=== PATIENT | female | born 1980 | race Caucasian/White ===

== ENCOUNTER 2018-02-07 04:43 | Emergency (ER) | payer BC ==
[2018-02-07] MEDS ORDERED: ALBUTEROL 2.5 MG/3 ML NEB SOL ONE (05:26)
[2018-02-07] MEDS ORDERED: IPRATROPIUM BROM 0.5MG/2.5ML ONE (05:27)
--- NOTE | 2018-02-07 06:11 | ER ---
Nurse's Notes [facility] Name: Jayro Calderon Age: 37 yrs Sex: Female : 1980 Arrival Date: 02/07/2018 Time: 04:43 Bed 16 Private MD: Diagnosis: Bronchitis, not specified as acute or chronic Presentation: 02/07 04:54 Presenting complaint: Patient states: "I have a cough, and I lost my voice, and I have jd3 this heaviness on my chest that is making it hard to breath because of all this congestion.". Transition of care: patient was not received from another setting of care. Onset of symptoms was February 07, 2018. Risk Assessment: Do you want to hurt yourself or someone else? Patient reports no desire to harm self or others. Initial Sepsis Screen: Does the patient meet any 2 criteria? No. Patient's initial sepsis screen is negative. Does the patient have a suspected source of infection? No. Patient's initial sepsis screen is negative. Care prior to arrival: None. 04:54 Method Of Arrival: Ambulatory 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 - Social history:: Smoking status: Patient uses tobacco products, denies chronic smoking, but will smoke occasionally. - Ebola Screening: : Patient negative for fever greater than or equal to 101.5 degrees Fahrenheit, and additional compatible Ebola Virus Disease symptoms. Screenin:02 Abuse screen: Denies threats or abuse. Nutritional screening: No deficits noted. jd3 Tuberculosis screening: No symptoms or risk factors identified. Fall Risk Ambulatory Aid- None/Bed Rest/Nurse Assist (0 pts). Gait- Normal/Bed Rest/Wheelchair (0 pts) Mental Status- Oriented to own ability (0 pts). Total Coleman Fall Scale indicates No Risk (0-24 pts). Assessment: 05:01 General: Appears uncomfortable, Behavior is calm, cooperative, appropriate for age. jd3 Pain: Denies pain. Neuro: Level of Consciousness is awake, alert, obeys commands, Oriented to person, place, time, situation. Cardiovascular: Capillary refill < 3 seconds Patient's skin is warm and dry. Respiratory: Reports shortness of breath cough that is Airway is patent Respiratory effort is even, labored, Respiratory pattern is regular, symmetrical, Breath sounds with wheezes bilaterally. GI: No signs and/or symptoms were reported involving the gastrointestinal system. : No signs and/or symptoms were reported regarding the genitourinary system. EENT: No signs and/or symptoms were reported regarding the EENT system. Derm: Skin is intact, Skin is dry, Skin is normal, Skin temperature is warm. Musculoskeletal: Circulation, motion, and sensation intact. Range of motion: intact in all extremities. 06:18 Reassessment: Patient appears in no apparent distress at this time. Patient and/or jd3 family updated on plan of care and expected duration. Pain level reassessed. Patient is alert, oriented x 3, equal unlabored respirations, skin warm/dry/pink. reported understanding of discharge instructions, even and steady gait upon discharge. Patient states feeling better. Vital Signs: 05:00 BP 114 / 96; Pulse 88; Resp 18 S; Temp 99.0(O); Pulse Ox 100% on R/A; Weight 90.72 kg jd3 (R); Height 5 ft. 6 in. (167.64 cm) (R); Pain 0/10; 06:18 BP 120 / 67; Pulse 95; Resp 16 S; Pulse Ox 100% on R/A; jd3 05:00 Body Mass Index 32.28 (90.72 kg, 167.64 cm) jd3 ED Course: 04:43 Patient arrived in ED. ds1 04:54 Rajiv Cueva, MUKESH is Primary Nurse. jd3 04:56 Triage completed. jd3 05:01 Arm band placed on. jd3 05:03 Patient has correct armband on for positive identification. Bed in low position. Call j light in reach. Side rails up X 1. 05:11 Louis Wallis MD is Attending Physician. tw4 06:17 No provider procedures requiring assistance completed. Patient did not have IV access jd3 during this emergency room visit. Administered Medications: 05:24 Drug: Albuterol - atroVENT (3:1) (2.5 mg - 0.5 mg) 3 ml Route: Nebulizer; jd3 06:19 Follow up: Response: No adverse reaction jd3 Outcome: 06:11 Discharge ordered by . tw4 06:18 Discharged to home ambulatory. jd3 06:18 Condition: stable 06:18 Discharge instructions given to patient, Instructed on discharge instructions, follow up and referral plans. medication usage, Demonstrated understanding of instructions, follow-up care, medications, Prescriptions given X 3. 06:19 Patient left the ED. jd3 Signatures: Aide Gaming ds1 Rajiv Cueva RN RN jd3 Louis Wallis MD MD tw4 Corrections: (The following items were deleted from the chart) 06:19 06:18 Reassessment: Patient appears in no apparent distress at this time. Patient jd3 and/or family updated on plan of care and expected duration. Pain level reassessed. Patient is alert, oriented x 3, equal unlabored respirations, skin warm/dry/pink. reported understanding of discharge instructions, even and steady gait upon discharge. jd3
--- NOTE | 2018-02-07 06:11 | EDPHYS ---
Physician Documentation [facility] Name: Jayro Calderon Age: 37 yrs Sex: Female : 1980 Arrival Date: 02/07/2018 Time: 04:43 Bed 16 Private MD: ED Physician Louis Wallis HPI: 02/07 06:08 This 37 yrs old Female presents to ER via Ambulatory with complaints of tw4 Breathing Difficulty, Chest Tightness. 06:08 The patient has shortness of breath at rest. Onset: The symptoms/episode began/occurred tw4 today. Duration: The symptoms are continuous, and are unchanged since they started. The patient's shortness of breath has no apparent modifying factors. Associated signs and symptoms: The patient has no apparent associated signs or symptoms. Severity of symptoms: At their worst the symptoms were moderate. The patient has not experienced similar symptoms in the past. 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 - Social history:: Smoking status: Patient uses tobacco products, denies chronic smoking, but will smoke occasionally. - Ebola Screening: : Patient negative for fever greater than or equal to 101.5 degrees Fahrenheit, and additional compatible Ebola Virus Disease symptoms. ROS: 06:08 Constitutional: Negative for fever, chills, and weight loss, Cardiovascular: Negative tw4 for chest pain, palpitations, and edema, Abdomen/GI: Negative for abdominal pain, nausea, vomiting, diarrhea, and constipation, Back: Negative for injury and pain, MS/Extremity: Negative for injury and deformity. 06:08 Respiratory: Positive for cough, with clear sputum. Exam: 06:08 Constitutional: This is a well developed, well nourished patient who is awake, alert, tw4 and in no acute distress. Head/Face: Normocephalic, atraumatic. Chest/axilla: Normal chest wall appearance and motion. Nontender with no deformity. No lesions are appreciated. Cardiovascular: Regular rate and rhythm with a normal S1 and S2. No gallops, murmurs, or rubs. Normal PMI, no JVD. No pulse deficits. Abdomen/GI: Soft, non-tender, with normal bowel sounds. No distension or tympany. No guarding or rebound. No evidence of tenderness throughout. MS/ Extremity: Pulses equal, no cyanosis. Neurovascular intact. Full, normal range of motion. Neuro: Awake and alert, GCS 15, oriented to person, place, time, and situation. Cranial nerves II-XII grossly intact. Motor strength 5/5 in all extremities. Sensory grossly intact. Cerebellar exam normal. Normal gait. 06:08 Respiratory: the patient does not display signs of respiratory distress, Respirations: normal, Breath sounds: wheezing: that is mild. Vital Signs: 05:00 BP 114 / 96; Pulse 88; Resp 18 S; Temp 99.0(O); Pulse Ox 100% on R/A; Weight 90.72 kg jd3 (R); Height 5 ft. 6 in. (167.64 cm) (R); Pain 0/10; 06:18 BP 120 / 67; Pulse 95; Resp 16 S; Pulse Ox 100% on R/A; jd3 05:00 Body Mass Index 32.28 (90.72 kg, 167.64 cm) jd3 MDM: 05:12 Patient medically screened. tw4 06:08 Differential diagnosis: reactive airway disease. Antibiotic administration: Not tw4 indicated. Data reviewed: vital signs, nurses notes. Counseling: I had a detailed discussion with the patient and/or guardian regarding: the historical points, exam findings, and any diagnostic results supporting the discharge/admit diagnosis. Special discussion: I discussed with the patient/guardian in detail that at this point there is no indication for admission to the hospital. It is understood, however, that if the symptoms persist or worsen the patient needs to return immediately for re-evaluation. Administered Medications: 05:24 Drug: Albuterol - atroVENT (3:1) (2.5 mg - 0.5 mg) 3 ml Route: Nebulizer; jd3 06:19 Follow up: Response: No adverse reaction jd3 Disposition: 02/07/18 06:11 Discharged to Home. Impression: Bronchitis, not specified as acute or chronic. - Condition is Stable. - Discharge Instructions: Acute Bronchitis, Adult. - Prescriptions for Tessalon Perles 100 mg Oral Capsule - take 1 capsule by ORAL route every 8 hours As needed; 15 capsule. Albuterol Sulfate 90 mcg/actuation - inhale 1-2 puff by INHALATION route every 4-6 hours; 1 Inhaler. Guaifenesin AC 10- 100 mg/5 mL Oral Liquid - take 10 milliliter by ORAL route every 4 hours As needed; 240 milliliter. - Work release form, Medication Reconciliation Form, Thank You Letter, Antibiotic Education, Prescription Opioid Use form. - Follow up: Private Physician; When: Upon discharge from the Emergency Department; Reason: Further diagnostic work-up, Recheck today's complaints, Continuance of care. - Problem is new. - Symptoms have improved. Signatures: Rajiv Cueva RN RN jd3 Louis Wallis MD MD tw4 Corrections: (The following items were deleted from the chart) 06:12 06:11 02/07/2018 06:11 Discharged to Home. Impression: Bronchitis, not specified as tw4 acute or chronic. Condition is Stable. Forms are Medication Reconciliation Form, Thank You Letter, Antibiotic Education, Prescription Opioid Use. Follow up: Private Physician; When: Upon discharge from the Emergency Department; Reason: Further diagnostic work-up, Recheck today's complaints, Continuance of care. tw4 06:19 06:12 02/07/2018 06:11 Discharged to Home. Impression: Bronchitis, not specified as jd3 acute or chronic. Condition is Stable. Forms are Medication Reconciliation Form, Thank You Letter, Antibiotic Education, Prescription Opioid Use. Follow up: Private Physician; When: Upon discharge from the Emergency Department; Reason: Further diagnostic work-up, Recheck today's complaints, Continuance of care. Problem is new. Symptoms have improved. tw4
== END 2018-02-07 06:19 | disposition home or self-care (01) ==
LOC: ER 04:43
DX: J40 Bronchitis, not specified as acute or chronic (principal); F31.9 Bipolar disorder, unspecified; Z72.0 Tobacco use
CPT/HCPCS: 94640; 99284

== ENCOUNTER 2019-07-22 01:49 | Emergency (ER) | payer OTHER ==
--- NOTE | 2019-07-22 02:42 | ER ---
Nurse's Notes [facility] Name: Jayro Calderon Age: 38 yrs Sex: Female : 1980 Arrival Date: 07/22/2019 Time: 01:50 Bed 7 Private MD: Diagnosis: Acute upper respiratory infection, unspecified Presentation: 07/21 02:03 Chief complaint: Patient states: she has had a dry cough x a year but now she is bb feeling some chest tightness, sore throat, denies fever but says she thought she would come and get checked since she feels bad enough not to go to work. Coronavirus screen: Proceed with normal triage. Ebola Screen: No symptoms or risks identified at this time. Initial Sepsis Screen: Does the patient meet any 2 criteria? No. Patient's initial sepsis screen is negative. Does the patient have a suspected source of infection? No. Patient's initial sepsis screen is negative. Risk Assessment: Do you want to hurt yourself or someone else? Patient reports no desire to harm self or others. Onset of symptoms was July 22, 2019. 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 - Social history:: Smoking status: Patient/guardian denies using tobacco, the patient reports quitting approximately 1 years ago, Patient/guardian denies using alcohol. Screenin:11 Abuse screen: Denies threats or abuse. Nutritional screening: No deficits noted. jd3 Tuberculosis screening: No symptoms or risk factors identified. Fall Risk Ambulatory Aid- None/Bed Rest/Nurse Assist (0 pts). Gait- Normal/Bed Rest/Wheelchair (0 pts) Mental Status- Oriented to own ability (0 pts). Total Coleman Fall Scale indicates No Risk (0-24 pts). Assessment: 02:09 General: Appears in no apparent distress. uncomfortable, Behavior is calm, cooperative, jd3 appropriate for age. Pain: Complains of pain in "joints" Pain does not radiate. Quality of pain is described as aching, Pain began gradually, Is continuous. Neuro: Level of Consciousness is awake, alert, obeys commands, Oriented to person, place, time, situation. Cardiovascular: Denies chest pain, Heart tones S1 S2 present Capillary refill < 3 seconds Patient's skin is warm and dry. Respiratory: Reports shortness of breath at rest cough that is non-productive, persistent , chronic Airway is patent Respiratory effort is even, unlabored, Respiratory pattern is regular, symmetrical, Breath sounds are clear bilaterally. GI: No signs and/or symptoms were reported involving the gastrointestinal system. Patient currently denies diarrhea, nausea, vomiting. : No signs and/or symptoms were reported regarding the genitourinary system. EENT: No signs and/or symptoms were reported regarding the EENT system. Derm: Skin is intact, Skin is dry, Skin is normal, Skin temperature is warm. Musculoskeletal: Circulation, motion, and sensation intact. Range of motion: intact in all extremities. 02:48 Reassessment: Patient appears in no apparent distress at this time. Patient and/or jd3 family updated on plan of care and expected duration. Pain level reassessed. Patient is alert, oriented x 3, equal unlabored respirations, skin warm/dry/pink. pt reported understanding of discharge instructions, even and steady gait upon discharge. Vital Signs: 02:03 BP 153 / 100; Pulse 105; Resp 16 S; Temp 98.3(O); Pulse Ox 100% on R/A; Weight 115.67 bb kg (R); Height 5 ft. 7 in. (170.18 cm) (R); Pain 7/10; 02:48 BP 125 / 90; Pulse 100; Resp 16 S; Temp 98.2(O); Pulse Ox 100% on R/A; jd3 02:03 Body Mass Index 39.94 (115.67 kg, 170.18 cm) ED Course: 01:50 Patient arrived in ED. ds1 01:55 Louis Wallis MD is Attending Physician. tw4 01:56 Rajiv Cueva, RN is Primary Nurse. jd3 02:07 Triage completed. bb 02:12 Patient has correct armband on for positive identification. Bed in low position. Call jjustino light in reach. Side rails up X 1. Pulse ox on. NIBP on. 02:12 Arm band placed on. jd3 02:12 Patient maintains SpO2 saturation greater than 95% on room air. jd3 02:37 CXR XRAY In Process Unspecified. EDMS 02:46 No provider procedures requiring assistance completed. Patient did not have IV access jd3 during this emergency room visit. Administered Medications: No medications were administered Outcome: 02:42 Discharge ordered by . tw4 02:47 Discharged to home ambulatory. jd3 02:47 Condition: stable 02:47 Discharge instructions given to patient, Instructed on discharge instructions, follow up and referral plans. Demonstrated understanding of instructions, follow-up care. 02:53 Patient left the ED. jd3 Signatures: Dispatcher [employer] EDAZ Aide Gaming ds1 Patricia Yepez RN RN Rajiv Thomas, MUKESH RN jLuois Singletary MD MD tw4 Corrections: (The following items were deleted from the chart) 02:49 02:48 BP 125 / 90; Pulse 100bpm; Resp 16bpm; Spontaneous; Pulse Ox 100% RA; jd3 jd3
--- NOTE | 2019-07-22 02:42 | EDPHYS ---
Physician Documentation [facility] Name: Jayro Calderon Age: 38 yrs Sex: Female : 1980 Arrival Date: 07/22/2019 Time: 01:50 Bed 7 Private MD: ED Physician Louis Wallis HPI: 07/21 02:53 This 38 yrs old Female presents to ER via Ambulatory with complaints of tw4 Cough, Chest Tightness. 02:53 The patient or guardian reports cough. Onset: The symptoms/episode began/occurred 1 tw4 year(s) ago. Severity of symptoms: At their worst the symptoms were moderate, in the emergency department the symptoms are unchanged. Modifying factors: The symptoms are alleviated by nothing, the symptoms are aggravated by nothing. The patient has not experienced similar symptoms in the past. 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 - Social history:: Smoking status: Patient/guardian denies using tobacco, the patient reports quitting approximately 1 years ago, Patient/guardian denies using alcohol. ROS: 02:53 Constitutional: Negative for fever, chills, and weight loss, Eyes: Negative for injury, tw4 pain, redness, and discharge, Cardiovascular: Negative for chest pain, palpitations, and edema, Abdomen/GI: Negative for abdominal pain, nausea, vomiting, diarrhea, and constipation, Back: Negative for injury and pain, MS/Extremity: Negative for injury and deformity, Skin: Negative for injury, rash, and discoloration, Neuro: Negative for headache, weakness, numbness, tingling, and seizure. 02:53 Respiratory: Positive for cough, Negative for dyspnea on exertion, hemoptysis, orthopnea, pleurisy, shortness of breath, sputum production, wheezing. Exam: 02:53 Constitutional: This is a well developed, well nourished patient who is awake, alert, tw4 and in no acute distress. Head/Face: Normocephalic, atraumatic. Chest/axilla: Normal chest wall appearance and motion. Nontender with no deformity. No lesions are appreciated. Cardiovascular: Regular rate and rhythm with a normal S1 and S2. No gallops, murmurs, or rubs. Normal PMI, no JVD. No pulse deficits. Respiratory: Lungs have equal breath sounds bilaterally, clear to auscultation and percussion. No rales, rhonchi or wheezes noted. No increased work of breathing, no retractions or nasal flaring. Abdomen/GI: Soft, non-tender, with normal bowel sounds. No distension or tympany. No guarding or rebound. No evidence of tenderness throughout. Back: No spinal tenderness. No costovertebral tenderness. Full range of motion. Skin: Warm, dry with normal turgor. Normal color with no rashes, no lesions, and no evidence of cellulitis. MS/ Extremity: Pulses equal, no cyanosis. Neurovascular intact. Full, normal range of motion. Neuro: Awake and alert, GCS 15, oriented to person, place, time, and situation. Cranial nerves II-XII grossly intact. Motor strength 5/5 in all extremities. Sensory grossly intact. Cerebellar exam normal. Normal gait. Vital Signs: 02:03 BP 153 / 100; Pulse 105; Resp 16 S; Temp 98.3(O); Pulse Ox 100% on R/A; Weight 115.67 bb kg (R); Height 5 ft. 7 in. (170.18 cm) (R); Pain 7/10; 02:48 BP 125 / 90; Pulse 100; Resp 16 S; Temp 98.2(O); Pulse Ox 100% on R/A; jd3 02:03 Body Mass Index 39.94 (115.67 kg, 170.18 cm) bb MDM: 01:55 Patient medically screened. tw4 02:53 Differential Diagnosis: Obstructed Airway Bronchitis Influenza Upper Respiratory tw4 Infection. Data reviewed: vital signs, nurses notes. Data reviewed: lab test result(s), CBC, electrolytes, hepatic panel. Data interpreted: Pulse oximetry: Interpretation: normal. Special discussion: I discussed with the patient/guardian in detail that at this point there is no indication for admission to the hospital. It is understood, however, that if the symptoms persist or worsen the patient needs to return immediately for re-evaluation. 04 01:56 Order name: Flu; Complete Time: 02:39 tw4 07/21 01:56 Order name: CXR XRAY tw4 Administered Medications: No medications were administered Disposition: 07/22/19 02:42 Discharged to Home. Impression: Acute upper respiratory infection, unspecified. - Condition is Stable. - Discharge Instructions: Upper Respiratory Infection, Pediatric, Viral Respiratory Infection. - Prescriptions for Tessalon Perles 100 mg Oral Capsule - take 1 capsule by ORAL route every 8 hours As needed; 15 capsule. - Work release form, Medication Reconciliation Form, Thank You Letter, Antibiotic Education, Prescription Opioid Use form. - Follow up: Private Physician; When: Upon discharge from the Emergency Department; Reason: Recheck today's complaints, Continuance of care, Re-evaluation by your physician. - Problem is new. - Symptoms have improved. Signatures: Dispatcher [employer] EDMS Patricia Yepez RN RN Rajiv Thomas RN RN Louis Julien MD MD tw4 Corrections: (The following items were deleted from the chart) 02:53 02:42 07/22/2019 02:42 Discharged to Home. Impression: Acute upper respiratory jd3 infection, unspecified. Condition is Stable. Forms are Medication Reconciliation Form, Thank You Letter, Antibiotic Education, Prescription Opioid Use. Follow up: Private Physician; When: Upon discharge from the Emergency Department; Reason: Recheck today's complaints, Continuance of care, Re-evaluation by your physician. Problem is new. Symptoms have improved. tw4
[2019-07-22 03:00] VITALS: O2SAT 100
[2019-07-22 03:01] VITALS: BP 125/90; TEMP 98.2
--- NOTE | 2019-07-22 08:28 | RAD REPORT ---
EXAM DESCRIPTION: RAD - Chest Single View - 07/22/2019 2:37 am CLINICAL HISTORY: COUGH Chest pain. COMPARISON: ABDOMEN ACUTE SERIES dated 08/26/2007 FINDINGS: Portable technique limits examination quality. The lungs are grossly clear. The heart is normal in size. No displaced fractures. IMPRESSION: No acute intrathoracic process suspected.
== END 2019-07-22 02:53 | disposition home or self-care (01) ==
LOC: ER 01:49
DX: J06.9 Acute upper respiratory infection, unspecified (principal); F31.9 Bipolar disorder, unspecified; Z98.82 Breast implant status
CPT/HCPCS: 71045; 87804; 99284

== ENCOUNTER → 2023-06-11 | Emergency (ER) | payer BC ==
[~2023-06-11] MED LIST: HALOPERIDOL LACT 5 MG/ML INJ ONE; MORPHINE 4 MG/ML SYR ONE; NA CHLORIDE 0.9% 1,000 ML ONE; OXYCODONE *CR* 10 MG TAB PO ONE
--- NOTE | 2023-06-11 22:09 | RAD REPORT ---
EXAM DESCRIPTION: Donna Single View06/11/2023 9:49 pm CLINICAL HISTORY: sob COMPARISON: 2019 FINDINGS: The lungs appear clear of acute infiltrate. The heart is normal size IMPRESSION: No acute abnormalities displayed
[2023-06-11 22:40] LABS: Absolute Lymphocytes (CBC) 2.3 K/uL (0.7-4.9); Lymphocytes % 16.9 % (15.3-44.8); MCV 86.1 fL (80-100); MPV 6.9 fL (7.6-11.3); Platelets 605 thou/uL (152-406); RBC Red Blood Cell Count 3.25 M/uL (3.86-4.86)
[2023-06-11 23:13] LABS: Albumin 2.9 g/dL (3.4-5.0); Bilirubin Total 0.4 mg/dL (0.2-1.0); Protein, Total 7.7 g/dL (6.4-8.2); Troponin High Sensitivity 4.2 pg/mL (<58.9)
[2023-06-11 23:14] LABS: Potassium 3.6 mEq/L (3.5-5.1)
[2023-06-12 00:59] LABS: Specific Gravity > 1.030 (1.005-1.030)
[2023-06-12 01:09] LABS: Specific Gravity > 1.030 (1.005-1.030); Urine Bacteria None Seen /HPF (<20); Urine Bilirubin NEGATIVE (Negative); Urine Blood 1+ (Negative); Urine Clarity Clear (Clear); Urine Color Yellow (Yellow); Urine Glucose TRACE (Negative); Urine Mucus 1+ /HPF (None Seen); Urine Protein 1+ (Negative); Urine RBC <5 /HPF (None Seen); Urine Urobilinogen Normal (Normal); Urine pH 5.5 (5.0-7.0)
--- NOTE | 2023-06-12 02:32 | ER ---
Nurse's Notes [facility] Name: Jayro Calderon Age: 42 yrs Sex: Female : 1980 Arrival Date: 06/11/2023 Time: 20:45 Bed 20 Private MD: Diagnosis: Fat Infarct Presentation: 06/11 21:00 Chief complaint: Patient states: "I've been having severe back pain that started on jw7 Monday and has progressively gotten worse. I've also been having some shortness of breath from the pain.". Coronavirus screen: At this time, the client does not indicate any symptoms associated with coronavirus-19. Ebola Screen: No symptoms or risks identified at this time. Initial Sepsis Screen: Does the patient meet any 2 criteria? RR > 20 per min. HR > 90 bpm. Yes Does the patient have a suspected source of infection? No. Patient's initial sepsis screen is negative. Risk Assessment: Do you want to hurt yourself or someone else? Patient reports no desire to harm self or others. Onset of symptoms was June 09, 2023. Care prior to arrival: Medication(s) given: Tylenol, 650 mg. 21:00 Method Of Arrival: Ambulatory jw7 21:00 Acuity: DEEPALI 3 jw7 Triage Assessment: 21:00 General: Appears in no apparent distress. uncomfortable, Behavior is cooperative, jw7 anxious, crying, restless. Pain: Complains of pain in back Pain does not radiate. Pain currently is 10 out of 10 on a pain scale. Quality of pain is described as sharp, stabbing, throbbing, Pain began 2-3 days ago. Is continuous. EENT: No deficits noted. No signs and/or symptoms were reported regarding the EENT system. Neuro: Najera Agitation-Sedation Scale (RASS): 0 - Alert and Calm Level of Consciousness is awake, alert, obeys commands, Oriented to person, place, time, situation. Cardiovascular: Heart tones S1 S2 present Capillary refill < 3 seconds Patient's skin is warm and dry. Respiratory: Reports shortness of breath due to pain Airway is patent Trachea midline Respiratory effort is even, unlabored, Respiratory pattern is regular, symmetrical, tachypnea Onset: The symptoms/episode began/occurred Monday, the patient has severe shortness of breath. GI: Abdomen is round non-distended, obese, Colostomy site is clean and dry. Ostomy appliance is intact. Bowel sounds present X 4 quads. Abd is soft and non tender X 4 quads. : No deficits noted. No signs and/or symptoms were reported regarding the genitourinary system. Derm: Skin is intact, is healthy with good turgor, Skin is dry, Skin is normal, Skin temperature is warm. Musculoskeletal: Circulation, motion, and sensation intact. Range of motion: intact in all extremities. Historical: - Allergies: 21:00 No Known Allergies; jw7 - Home Meds: 21:00 Adderall XR Oral [Active]; Xanax oral [Active]; lamotrigine oral [Active]; jw7 - PMHx: 21:00 Anxiety; Bipolar disorder; ulcertive colitus; PAU (ulcertive colitus); Acute Kidney jw7 Failure (ulcertive colitus); - PSHx: 21:00 Colectomy; Colostomy; jw7 - Immunization history:: Adult Immunizations up to date, Client reports having NOT received the Covid vaccine. Last tetanus immunization: < 5 years ago Flu vaccine is not up to date. - Social history:: Smoking status: Patient denies any tobacco usage or history of. Patient/guardian denies using alcohol, street drugs, IV drugs. Screenin:00 [facility] ED Fall Risk Assessment (Adult) History of falling in the last 3 months, jw7 including since admission No falls in past 3 months (0 pts) Score/Fall Risk Level 0 - 2 = Low Risk Oriented to surroundings, Maintained a safe environment, Educated pt \\T\\ family on fall prevention, incl call for assistance when getting out of bed. Abuse screen: Denies threats or abuse. Denies injuries from another. Nutritional screening: No deficits noted. Tuberculosis screening: No symptoms or risk factors identified. Assessment: 21:00 General: See Triage Assessment. jw7 22:00 Reassessment: Patient appears in no apparent distress at this time. No changes from jw7 previously documented assessment. Patient and/or family updated on plan of care and expected duration. Pain level reassessed. Patient is alert, oriented x 3, equal unlabored respirations, skin warm/dry/pink. 23:00 Reassessment: Patient appears in no apparent distress at this time. Patient and/or jw7 family updated on plan of care and expected duration. Pain level reassessed. Patient is alert, oriented x 3, equal unlabored respirations, skin warm/dry/pink. Patient states feeling better. Patient states symptoms have improved. 06/12 00:00 Reassessment: Patient appears in no apparent distress at this time. Patient and/or jw7 family updated on plan of care and expected duration. Pain level reassessed. Patient is alert, oriented x 3, equal unlabored respirations, skin warm/dry/pink. Pt c/o of returning pain to back, Provider Notified. 01:30 Reassessment: Patient appears in no apparent distress at this time. Patient and/or jw7 family updated on plan of care and expected duration. Pain level reassessed. Patient is alert, oriented x 3, equal unlabored respirations, skin warm/dry/pink. Patient states feeling better. Patient states symptoms have improved. 02:30 Reassessment: Patient appears in no apparent distress at this time. No changes from [facility] previously documented assessment. Patient and/or family updated on plan of care and expected duration. Pain level reassessed. Patient is alert, oriented x 3, equal unlabored respirations, skin warm/dry/pink. Vital Signs: 06/11 21:00 BP 149 / 114; Pulse 102; Resp 26 S; Temp 98.1(O); Pulse Ox 100% on R/A; Weight 104.33 jw7 kg; Height 5 ft. 7 in. ; Pain 10/10; 21:00 BP 133 / 103; Pulse 98; Resp 23 S; Pulse Ox 98% on R/A; jw7 22:00 BP 149 / 100; Pulse 85; Resp 20 S; Pulse Ox 99% on R/A; jw7 23:00 BP 121 / 77; Pulse 81; Resp 19 S; Pulse Ox 100% on R/A; jw7 23:30 BP 121 / 77; Pulse 82; ec2 06/12 00:00 BP 126 / 88; Pulse 84; Resp 19 S; Pulse Ox 100% on R/A; jw7 01:30 BP 139 / 69; Pulse 89; Resp 20 S; Pulse Ox 100% on R/A; jw7 02:00 BP 127 / 68; Pulse 89; Resp 20 S; Pulse Ox 98% on R/A; jw7 06/11 21:00 Body Mass Index 36.02 (104.33 kg, 170.18 cm) jw7 06/11 21:00 Pain Scale: Adult jw7 ED Course: 06/11 19:00 Patient has correct armband on for positive identification. Bed in low position. Call jw7 light in reach. Family accompanied patient. 20:49 Patient arrived in ED. kj1 21:00 Arm band placed on. jw7 21:12 Kasi Ward MD is Attending Physician. ec2 21:13 Natalie Whiting RN is Primary Nurse. jw7 21:17 Triage completed. jw7 21:51 CXR XRAY In Process Unspecified. EDMS 22:10 Inserted saline lock: 20 gauge in right forearm, using aseptic technique. Blood jw7 collected. 22:10 Initial lab(s) drawn, by tx, sent to lab. First set of blood cultures drawn by tx. jw7 22:25 Second set of blood cultures drawn by tx. jw7 06/12 00:26 Test, Urine Sent. jw7 00:26 Urinalysis w/ reflexes Sent. jw7 00:26 Urine collected: straight cath specimen, kim colored. Straight cath inserted, using jw7 sterile technique, 16 Fr. Returned kim urine. Patient tolerated well. 01:17 CT Abd/Pelvis - IV Contrast Only In Process Unspecified. EDMS 02:48 No provider procedures requiring assistance completed. IV discontinued, intact, jw7 bleeding controlled, No redness/swelling at site. Pressure dressing applied. 02:49 Provided Education on: Discharge instructions. jw7 02:50 Kasi Ward MD is Attending Physician. jw7 Administered Medications: 06/11 22:23 Drug: morphine IVP or IV 4 mg IVP once over 4 mins Route: IVP; Infused Over: 4 mins; jw7 Site: right forearm; 23:40 Follow up: Response: No adverse reaction; Marked relief of symptoms jw7 22:23 Drug: Haloperidol IVP 2.5 mg IVP once Route: IVP; Site: right forearm; jw7 23:39 Follow up: Response: No adverse reaction; Marked relief of symptoms jw7 22:23 Drug: NS 0.9% IV 1000 ml IV at 1 bolus Per protocol; 1000 mL bolus Route: IV; Rate: 1 jw7 bolus; Site: right forearm; 06/12 02:32 Follow up: Response: No adverse reaction; IV Status: Completed infusion; IV Intake: jw7 1000ml 00:26 Drug: morphine IVP or IV 4 mg IVP once over 4 mins Route: IVP; Infused Over: 4 mins; jw7 Site: right forearm; 02:32 Follow up: Response: No adverse reaction; Marked relief of symptoms jw7 02:47 Drug: oxyCODONE PO 10 mg PO once Route: PO; jw7 02:47 Follow up: Response: No adverse reaction jw7 Medication: 02:49 VIS not applicable for this client. jw7 Intake: 02:32 IV: 1000ml; Total: 1000ml. jw7 Outcome: 02:31 Discharge ordered by . ec2 02:48 Discharged to home ambulatory, with family, jw7 02:48 Condition: stable 02:48 Discharge instructions given to patient, Instructed on discharge instructions, follow up and referral plans. medication usage, Demonstrated understanding of instructions, follow-up care, medications, Prescriptions given X 1, 02:50 Patient left the ED. jw7 Signatures: Dispatcher [employer] EDAixa Smith kj1 Natalie Whiting RN RN jw7 Kasi Ward MD MD ec2 Corrections: (The following items were deleted from the chart) 00:27 00:00 Reassessment: Patient appears in no apparent distress at this time. No changes jw7 from previously documented assessment. Patient and/or family updated on plan of care and expected duration. Pain level reassessed. Patient is alert, oriented x 3, equal unlabored respirations, skin warm/dry/pink. jw7
--- NOTE | 2023-06-12 02:32 | EDPHYS ---
Physician Documentation [facility] Name: Jayro Calderon Age: 42 yrs Sex: Female : 1980 Arrival Date: 06/11/2023 Time: 20:45 Bed 20 Private MD: ED Physician Kasi Ward HPI: 06/11 21:29 This 42 yrs old Female presents to ER via Ambulatory with complaints of ec2 Shortness Of Breath, KIDNEY PAIN /PAU. 21:29 Patient arrives today for evaluation of abdominal pain as well as right flank pain. ec2 Patient reports pain started on Monday. Patient reports some associated nausea and vomiting. Patient with history of IBD, ulcerative colitis, previous colonic resection. Patient reports recent admission to [facility] for PAU. Denies any urinary complaints. Patient also reports shortness of breath secondary to her pain.. Historical: - Allergies: 21:00 No Known Allergies; jw7 - Home Meds: 21:00 Adderall XR Oral [Active]; Xanax oral [Active]; lamotrigine oral [Active]; jw7 - PMHx: 21:00 Anxiety; Bipolar disorder; ulcertive colitus; PAU (ulcertive colitus); Acute Kidney jw7 Failure (ulcertive colitus); - PSHx: 21:00 Colectomy; Colostomy; jw7 - Immunization history:: Adult Immunizations up to date, Client reports having NOT received the Covid vaccine. Last tetanus immunization: < 5 years ago Flu vaccine is not up to date. - Social history:: Smoking status: Patient denies any tobacco usage or history of. Patient/guardian denies using alcohol, street drugs, IV drugs. ROS: 21:29 Constitutional: as per hpi ec2 Exam: 21:29 Constitutional: GEN: NAD Head: atraumatic Eyes: EOMI Ears: External ears are ec2 normal. CV: Tachycardia LUNGS: no respiratory distress ABD: non-distended, soft, ostomy in place, diffusely tender, not guarding, not rigid, CVA with tenderness palpation on light pressure SKIN: no evidence of rashes MSK: no evidence of trauma NEURO: moves all extremities equally. Psych: Very emotionally labile individual who is restless Vital Signs: 21:00 BP 149 / 114; Pulse 102; Resp 26 S; Temp 98.1(O); Pulse Ox 100% on R/A; Weight 104.33 jw7 kg; Height 5 ft. 7 in. ; Pain 10/10; 21:00 BP 133 / 103; Pulse 98; Resp 23 S; Pulse Ox 98% on R/A; jw7 22:00 BP 149 / 100; Pulse 85; Resp 20 S; Pulse Ox 99% on R/A; jw7 23:00 BP 121 / 77; Pulse 81; Resp 19 S; Pulse Ox 100% on R/A; jw7 23:30 BP 121 / 77; Pulse 82; ec2 06/12 00:00 BP 126 / 88; Pulse 84; Resp 19 S; Pulse Ox 100% on R/A; jw7 01:30 BP 139 / 69; Pulse 89; Resp 20 S; Pulse Ox 100% on R/A; jw7 02:00 BP 127 / 68; Pulse 89; Resp 20 S; Pulse Ox 98% on R/A; 7 06/11 21:00 Body Mass Index 36.02 (104.33 kg, 170.18 cm) [facility] 06/11 21:00 Pain Scale: Adult [facility] MDM: 06/11 21:21 Patient medically screened. ec2 21:30 Data reviewed: vital signs. ED course: Patient arrives today for evaluation of ec2 abdominal pain along with shortness of breath. Examination remarkable for anxious individual who is restless with general abdominal TTP. Will obtain lab work, CT imaging, treat the patient symptoms and reassess the patient. Patient does meet SIRS criteria, no identifiable infectious source at this point, will defer septic management at this time.. 22:39 ED course: EKG independently reviewed and interpreted by me, shows normal sinus rhythm, ec2 rate of 80, no acute ST segment elevations, nonconcerning intervals.. 22:50 ED course: CBC shows leukocytosis at 13.4. Chest x-ray shows no acute intrathoracic ec2 process. Pending rest of lab work, CT imaging. . 23:16 ED course: Metabolic profile reassuring. Lipase elevated at 400. Lactate within normal ec2 ranges, troponin within normal ranges. . 23:16 ED course: Chest x-ray shows no acute intrathoracic process.. ec2 06/12 01:11 ED course: Urine noninfectious appearing, not . . ec2 02:11 ED course: CT scan shows focal intraperitoneal fat infarction. . ec2 02:30 ED course: I discussed the findings of the CT scan with the patient and the family ec2 member and recommended inpatient hospitalization, patient declines that she wants to return to home. Will discharge home with pain medications and instructed her to return if she changes her mind or symptoms worsen. Return precautions given.. 06/11 21:29 Order name: CBC with Diff; Complete Time: 22:49 ec2 06/11 21:29 Order name: CMP; Complete Time: 23:15 ec2 06/11 21:29 Order name: Lipase; Complete Time: 23:15 ec2 06/11 21:29 Order name: Test, Urine; Complete Time: 01:11 ec2 06/11 21:29 Order name: Urinalysis w/ reflexes; Complete Time: 01:11 ec2 06/11 21:31 Order name: Blood Culture Adult (2) ec2 06/11 21:31 Order name: Lactate w/ 2H reflex if indic.; Complete Time: 23:15 ec2 06/11 22:35 Order name: Troponin High Sensitivity; Complete Time: 23:15 EDMS 06/11 21:29 Order name: CT Abd/Pelvis - IV Contrast Only ec2 06/11 21:30 Order name: CXR XRAY; Complete Time: 22:49 ec2 06/11 21:31 Order name: EKG; Complete Time: 21:32 ec2 06/11 21:29 Order name: IV Saline Lock; Complete Time: 22:23 ec2 06/11 21:29 Order name: Labs collected and sent; Complete Time: 22:23 ec2 06/11 21:31 Order name: Accucheck; Complete Time: 23:15 ec2 06/11 21:31 Order name: Cardiac monitoring; Complete Time: 23:15 ec2 06/11 21:31 Order name: EKG - Nurse/Tech; Complete Time: 23:15 ec2 06/11 21:31 Order name: IV Saline Lock - Large Bore; Complete Time: 22:23 ec2 06/11 21:31 Order name: O2 Per Protocol; Complete Time: 21:42 ec2 06/11 21:31 Order name: O2 Sat Monitoring; Complete Time: 21:42 ec2 06/11 21:31 Order name: Vital Signs; Complete Time: 21:42 ec2 06/11 23:16 Order name: Cath; Complete Time: 00:26 ec2 Administered Medications: 06/11 22:23 Drug: morphine IVP or IV 4 mg IVP once over 4 mins Route: IVP; Infused Over: 4 mins; jw7 Site: right forearm; 23:40 Follow up: Response: No adverse reaction; Marked relief of symptoms jw7 22:23 Drug: Haloperidol IVP 2.5 mg IVP once Route: IVP; Site: right forearm; jw7 23:39 Follow up: Response: No adverse reaction; Marked relief of symptoms jw7 22:23 Drug: NS 0.9% IV 1000 ml IV at 1 bolus Per protocol; 1000 mL bolus Route: IV; Rate: 1 jw7 bolus; Site: right forearm; 06/12 02:32 Follow up: Response: No adverse reaction; IV Status: Completed infusion; IV Intake: jw7 1000ml 00:26 Drug: morphine IVP or IV 4 mg IVP once over 4 mins Route: IVP; Infused Over: 4 mins; jw7 Site: right forearm; 02:32 Follow up: Response: No adverse reaction; Marked relief of symptoms jw7 02:47 Drug: oxyCODONE PO 10 mg PO once Route: PO; jw7 02:47 Follow up: Response: No adverse reaction jw7 Disposition Summary: 06/12/23 02:31 Discharge Ordered Condition: Stable ec2 Diagnosis - Fat Infarct ec2 Followup: ec2 - With: Private Physician - When: - Reason: Re-evaluation by your physician Discharge Instructions: - Discharge Summary Sheet ec2 - Abdominal Pain, Adult, [id number] ec2 Forms: - Medication Reconciliation Form ec2 - Thank You Letter ec2 - Antibiotic Education ec2 - Prescription Opioid Use ec2 - Patient Portal Instructions ec2 - Leadership Thank You Letter ec2 Prescriptions: - acetaminophen-codeine 300-15 mg Oral tablet - take 1 tablet ORAL route 3 times per day as needed for pain; 15 tablet; ec2 Refills: 0, Product Selection Permitted Signatures: Dispatcher KelHoNatalie Hercules RN RN jw7 Kasi Ward MD MD ec2 Corrections: (The following items were deleted from the chart) 06/11 21:30 21:29 Patient arrives today for evaluation of abdominal pain as well as right flank ec2 pain. Patient reports pain started on Monday. Patient reports some associated nausea and vomiting. Patient with history of IBD, ulcerative colitis, previous colonic resection. Patient reports recent admission to [facility] for PAU. Denies any urinary complaints.. ec2 21:30 21:29 Constitutional: GEN: NAD Head: atraumatic Eyes: EOMI Ears: External ears are ec2 normal. CV: Tachycardia LUNGS: no respiratory distress ABD: non-distended, soft, ostomy in place, diffusely tender, not guarding, not rigid, CVA with tenderness palpation on light pressure SKIN: no evidence of rashes MSK: no evidence of trauma NEURO: moves all extremities equally ec2 22:35 21:32 Troponin High Sensitivity+C.LAB.BRZ ordered. EDMS EDMS
[2023-06-12 03:28] VITALS: BP 127/68; TEMP 98.1; O2SAT 98
--- NOTE | 2023-06-12 11:48 | RAD REPORT ---
EXAM DESCRIPTION: CT - Abdomen Pelvis W Contrast - 06/12/2023 6:52 am CLINICAL HISTORY: The patient is 42 years old and is Female; ABD PAIN TECHNIQUE: Axial computed tomography images of the abdomen and pelvis with intravenous contrast. S agittal and coronal reformatted images were created and reviewed. This CT exam was performed using one or more of the following dose reduction techniques: automated exposure control, adjustment of t he mA and/or kV according to patient size, and/or use of iterative reconstruction technique. COMPARISON: No relevant prior studies available. FINDINGS: Limitations: Evaluation limited by motion artifact. Lung bases: Unremarkable. No mass. No consolidation. Mediastinum: Hiatal hernia. ABDOMEN: Liver: Unremarkable. No mass. Gallbladder and bile ducts: Unremarkable. No calcified stones. No ductal dilation. Pancreas: Unremarkable. No mass. No ductal dilation. Spleen: Unremarkable. No splenomegaly. Adrenals: Unremarkable. No mass. Kidneys and ureters: Unremarkable. No solid mass. No hydronephrosis. Stomach and bowel: Postsurgical changes in the bowel. Postsurgical changes in the stomach. Right lower quadrant ostomy with fat-containing parastomal hernia. No obstruction. No mucosal thickening. PELVIS: Appendix: No findings to suggest acute appendicitis. Bladder: Unremarkable. Reproductive: Unremarkable as visualized. ABDOMEN and PELVIS: Intraperitoneal space: Small focus of stranding in the intraperitoneal fat in the right lower yary drant suggestive of intraperitoneal focal fat infarction. No free air. No significant fluid collection. Bones/joints: Disc space narrowing with degenerative endplate changes in the spine. No acute fracture. No dislocation. Soft tissues: See above. Vasculature: Unremarkable. No abdominal aortic aneurysm. Lymph nodes: Prominent periaortic lymph nodes. IMPRESSION: Small focus of stranding in the intraperitoneal fat in the right lower quadrant suggesti ve of intraperitoneal focal fat infarction. Electronically signed by: Aquilino Haddad MD 06/12/2023 01:52 AM [facility] Due to temporary technical issues with the PACS/Fluency reporting system, reports are being signed by the in house radiologists without review as a courtesy to insure prompt reporting. The interpreting radiologist is fully responsible for the content of the report.
--- NOTE | 2023-06-12 14:28 | EKG ---
Test Date: 2023-06-11 Test Time: 22:35:49 Statistics Professor: ZOYA MEASUREMENT RESULTS: Intervals: Rate: 80 HI: 166 QRSD: 84 QT: 386 QTc: 445 [place]: P: 54 HI: 166 QRS: 68 T: 36 INTERPRETIVE STATEMENTS: Normal sinus rhythm Normal ECG Compared to ECG 08/12/2013 23:29:35 Sinus tachycardia no longer present Electronically Signed On 06-12-23 14:26:06 [employer] by Javid Keys
== END ==
LOC: ER 20:45
DX: K65.4 Sclerosing mesenteritis (principal)
CPT/HCPCS: 93005; 87040 ×2; 85025; 81001; 36415; 83605; 84484; 83690; 80053; 74177; 71045; Q9967; J1630; J7030

== ENCOUNTER 2024-09-08 21:49 | Emergency (ER) | payer BC ==
[2024-09-08] MEDS ORDERED: ONDANSETRON 4 MG/2 ML VIAL ONE (23:21)
[2024-09-08] MEDS ORDERED: MORPHINE 4 MG/ML SYR ONE (23:21)
[2024-09-08 23:29] LABS: Absolute Basophils 0.1 K/uL (0-0.5); Absolute Eosinophils 0.3 K/uL (0-0.5); Absolute Lymphocytes (CBC) 3.2 K/uL (0.7-4.9); Absolute Monocytes 0.9 K/uL (0.1-1.3); Absolute Neutrophil 6.5 K/uL (1.8-8.0); Basophils % 0.7 % (0-1.3); Eosinophils % 2.7 % (0-4.4); Hematocrit 33.6 % (36.0-45.0); Hemoglobin 11.5 g/dL (12.0-15.0); Lymphocytes % 29.1 % (15.3-44.8); MCH 30.6 pg (27.0-35.0); MCHC 34.3 g/dL (32.0-36.0); MCV 89.2 fL (80-100); MPV 6.9 fL (7.6-11.3); Monocytes % 8.5 % (3.3-12.3); Platelets 452 thou/uL (152-406); RBC Red Blood Cell Count 3.76 M/uL (3.86-4.86); Red Cell Distribution Width 14.6 % (12.1-15.2)
[2024-09-08 23:38] LABS: PT Prothrombin Time 12.1 SECONDS (10-13.0); Protime INR 1.06
[2024-09-08 23:46] LABS: Albumin 3.3 g/dL (3.4-5.0); Albumin/Globulin Ratio 0.8 (1.1-1.8); Anion Gap 10.1 mEq/L (5.0-15.0); Bilirubin Total 0.4 mg/dL (0.2-1.0); Globulin 4.3 g/dL (2.3-3.5); Potassium 3.1 mEq/L (3.5-5.1); Protein, Total 7.6 g/dL (6.4-8.2)
[2024-09-08] MEDS ORDERED: HYDROMORPHONE HCL 1 MG/ML INJ ONE (23:48)
--- NOTE | 2024-09-09 02:53 | ER ---
Nurse's Notes [facility] Name: Jayro Calderon Age: 43 yrs Sex: Female : 1980 Arrival Date: 09/08/2024 Time: 21:49 Bed 12 Private MD: Diagnosis: Abdominal pain, Generalized Presentation: 09/08 21:54 Chief complaint: Patient states: c/o left abdominal pain that started 2 days ago, worse me1 today. 9/10, constant. Denies fever, chills. No n/v. Hx of colectomy. Coronavirus screen: Vaccine status: Patient reports being unvaccinated. Ebola Screen: No symptoms or risks identified at this time. Initial Sepsis Screen: Does the patient meet any 2 criteria? No. Patient's initial sepsis screen is negative. Does the patient have a suspected source of infection? No. Patient's initial sepsis screen is negative. Risk Assessment: Do you want to hurt yourself or someone else? Patient reports no desire to harm self or others. Onset of symptoms was September 06, 2024. 21:54 [place] Of [place] [facility] [place] Acuity: DEEPALI 3 me1 HOT SHOT: 21:57 LMP 08/10/2024, unknown me1 Historical: - Allergies: 21:57 No Known Allergies; me1 - PMHx: 21:57 Anxiety; Bipolar disorder; ulcertive colitus; me1 - PSHx: 21:57 Colectomy; me1 - Immunization history:: Adult Immunizations up to date. - Infectious Disease History:: Denies. - Social history:: Smoking status: Patient denies any tobacco usage or history of. Screenin:00 [facility] ED Fall Risk Assessment (Adult) History of falling in the last 3 months, rg5 including since admission No falls in past 3 months (0 pts) Confusion or Disorientation No (0 pts) Intoxicated or Sedated No (0 pts) Impaired Gait No (0 pts) Mobility Assist Device Used No (0 pt) Altered Elimination No (0 pt) Score/Fall Risk Level 0 - 2 = Low Risk Oriented to surroundings, Maintained a safe environment, Hourly rounding (assess needs \\T\\ fall precautionary measures) done. 22:00 Abuse screen: Denies threats or abuse. Nutritional screening: No deficits noted. rg5 Tuberculosis screening: No symptoms or risk factors identified. Assessment: 23:00 General: Appears uncomfortable, Behavior is cooperative, appropriate for age, crying. rg5 23:00 Pain: Complains of pain in abdomen Pain currently is 10 out of 10 on a pain scale. rg5 Quality of pain is described as aching. Neuro: Level of Consciousness is awake, alert, obeys commands, Oriented to person, place, time, situation. Cardiovascular: Patient's skin is warm and dry. Respiratory: Airway is patent Trachea midline Respiratory effort is even, unlabored, Respiratory pattern is regular, symmetrical. GI: Bowel sounds present in left lower quadrant Abd is soft and non tender. GI: Abdomen is round obese. : No signs and/or symptoms were reported regarding the genitourinary system. EENT: No signs and/or symptoms were reported regarding the EENT system. Derm: Skin is intact, Skin is dry, Skin is normal, Skin temperature is warm. Musculoskeletal: Circulation, motion, and sensation intact. Range of motion: intact in all extremities. 09/09 00:33 Reassessment: Patient and/or family updated on plan of care and expected duration. Pain rg5 level reassessed. Patient is alert, oriented x 3, equal unlabored respirations, skin warm/dry/pink. Patient states symptoms have improved. 01:15 Reassessment: Patient and/or family updated on plan of care and expected duration. Pain rg5 level reassessed. Patient is alert, oriented x 3, equal unlabored respirations, skin warm/dry/pink. 01:29 Reassessment: PATIENT REQUESTING PAIN MEDICATION . STATES " NOTHING IS HELPING I NEED ha1 SOMETHING STRONGER.'. 02:12 Reassessment: patient is not in the rm. rg5 02:12 Reassessment: PATIENT LEFT WITH IV IN PLACE. ATTEMPTED TO REACH MULTIPLE TIME BUT NO ha1 RESPOND. [employer] WAS NOTIFIED. 03:00 Reassessment: patient put as elope by mistake by clinical secretary. ha1 Vital Signs: 09/08 21:54 BP 156 / 109; Pulse 102; Resp 20; Temp 98.5; Pulse Ox 100% ; Weight 102.51 kg; Height 5 me1 ft. 7 in. ; Pain 10/10; 23:15 BP 146 / 80; Pulse 92; Resp 18; Pulse Ox 99% ; Pain 10/10; rg5 09/09 00:10 BP 128 / 71; Pulse 86; Resp 18; Pulse Ox 95% ; Pain 3/10; rg5 01:15 BP 119 / 72; Pulse 84; Resp 18; Pulse Ox 100% ; rg5 09/08 21:54 Body Mass Index 35.40 (102.51 kg, 170.18 cm) me1 09/08 21:54 Pain Scale: Adult me1 23:15 Pain Scale: Adult rg5 09/09 00:10 Pain Scale: Adult rg5 ED Course: 09/08 21:51 Patient arrived in ED. jj6 21:52 Amie Matamoros PA-C is PHCP. sb4 21:52 Juice Calixto MD is Attending Physician. sb4 21:57 Triage completed. me1 21:57 Arm band placed on Patient placed in waiting room. me1 22:00 Patient has correct armband on for positive identification. rg5 22:00 Inserted saline lock: 20 gauge in right forearm, using aseptic technique. Blood rg5 collected. Flushed with 10 mL NS. 22:00 No provider procedures requiring assistance completed. rg5 23:25 Suresh Ann, MUKESH is Primary Nurse. rg5 09/09 00:28 CT Abd/Pelvis - IV Contrast Only In Process Unspecified. EDMS 07:08 PHCP role handed off by Amie Matamoros PA-C jl7 07:08 Primary Nurse role handed off by Suresh Ann, MUKESH jl7 Administered Medications: 09/08 23:25 Drug: morphine IVP or IV 4 mg IVP once over 4 mins Route: IVP; Infused Over: 4 mins; rg5 Site: right forearm; 09/09 00:32 Follow up: Response: No adverse reaction; Pain is decreased rg5 09/08 23:25 Drug: Ondansetron IVP 4 mg IVP once; over 2 minutes Route: IVP; Site: right forearm; rg5 09/09 00:32 Follow up: Response: No adverse reaction; Pain is decreased rg5 09/08 23:52 Drug: HYDROmorphone IVP 1 mg IVP once Route: IVP; Site: right forearm; rg5 09/09 00:33 Follow up: Response: No adverse reaction; Pain is decreased rg5 Medication: 09/08 22:00 VIS not applicable for this client. rg5 Outcome: 09/09 03:00 Discharged to home ambulatory, ha1 Condition: stable Discharge instructions given to patient, 03:00 Patient left the ED. ha1 03:19 Patient left the ED. rg5 07:27 Discharge ordered by sp4 Signatures: Dispatcher [employer] Jaime Joseph RN RN jl7 Alin Swathi [email or web address] Taya Daugherty RN RN ha1 Amie Matamoros PA-C PA-C sb4 Potepalov, Sergey, MD MD sp4 Alanis Esquivel RN RN me1 Jeramie Ross RN RN bm8 Suresh Ann RN RN rg5 Corrections: (The following items were deleted from the chart) 09/08 21:57 21:57 PMHx: Acute Kidney Failure (ulcertive colitus); me1 me1 09/09 02:11 01:30 Reassessment: Patient and/or family updated on plan of care and expected rg5 duration. Pain level reassessed. Patient is alert, oriented x 3, equal unlabored respirations, skin warm/dry/pink. rg5 02:12 01:50 BP 119 / 72; Pulse 84bpm; Resp 18bpm; Pulse Ox 100%; rg5 rg5 07:10 02:12 Reassessment: PATIENT LEFT WITH IV IN PLACE. ATTEMPTED TO REACH MULTIPLE TIME BUT ha1 NO RESPOND. [employer] WAS NOTIFIED. bm8 07:10 01:30 Reassessment: PATIENT REQUESTING PAIN MEDICATION . STATES " NOTHING IS HELPING I ha1 NEED SOMETHING STRONGER.' bm8 07:34 07:33 Patient left the ED. ha1 ha1
--- NOTE | 2024-09-09 02:53 | EDPHYS ---
Physician Documentation [facility] Name: Jayro Calderon Age: 43 yrs Sex: Female : 1980 Arrival Date: 09/08/2024 Time: 21:49 Bed 12 Private MD: ED Physician Juice Calixto HPI: 09/09 00:13 This 43 yrs old Female presents to ER via Ambulatory with complaints of Abdominal Pain. sb4 00:13 The patient presents with abdominal pain in the left lower quadrant. Onset: The sb4 symptoms/episode began/occurred 2 day(s) ago, and became worse today. The symptoms do not radiate. Associated signs and symptoms: Pertinent positives: nausea, Pertinent negatives: fever, vomiting. DATA ABSTRACTOR: 09/08 21:57 LMP 08/10/2024, unknown me1 Historical: - Allergies: 21:57 No Known Allergies; me1 - PMHx: 21:57 Anxiety; Bipolar disorder; ulcertive colitus; me1 - PSHx: 21:57 Colectomy; me1 - Immunization history:: Adult Immunizations up to date. - Infectious Disease History:: Denies. - Social history:: Smoking status: Patient denies any tobacco usage or history of. ROS: 09/09 00:14 Constitutional: Negative for fever, chills, and weight loss, sb4 Abdomen/GI: Positive for abdominal pain, nausea, All other systems are negative, Exam: 00:14 Head/Face: Normocephalic, atraumatic. Eyes: Extra-ocular motions intact. Periorbital sb4 areas with no swelling, redness, or edema. ENT: Mucous membranes moist. Cardiovascular: Regular rate and rhythm with a normal S1 and S2. Respiratory: No increased work of breathing, no retractions or nasal flaring. Skin: Warm, dry with normal turgor. Normal color with no rashes, no lesions, and no evidence of cellulitis. 00:14 Constitutional: The patient appears alert, awake, in obvious pain, uncomfortable, 00:14 Abdomen/GI: Inspection: scar(s), are noted in the right lower quadrant, Bowel sounds: normal, Palpation: soft, moderate abdominal tenderness, in the left lower quadrant, Vital Signs: 09/08 21:54 BP 156 / 109; Pulse 102; Resp 20; Temp 98.5; Pulse Ox 100% ; Weight 102.51 kg; Height 5 me1 ft. 7 in. ; Pain 10/10; 23:15 BP 146 / 80; Pulse 92; Resp 18; Pulse Ox 99% ; Pain 10/10; rg5 09/09 00:10 BP 128 / 71; Pulse 86; Resp 18; Pulse Ox 95% ; Pain 3/10; rg5 01:15 BP 119 / 72; Pulse 84; Resp 18; Pulse Ox 100% ; rg5 09/08 21:54 Body Mass Index 35.40 (102.51 kg, 170.18 cm) me1 09/08 21:54 Pain Scale: Adult me1 23:15 Pain Scale: Adult rg5 09/09 00:10 Pain Scale: Adult rg5 MDM: 09/08 21:52 Medical Screening Exam initiated sb4 09/09 00:16 Differential diagnosis: bowel obstruction, non-specific abd pain, colitis. sb4 03:17 Data reviewed: vital signs, nurses notes, old medical records, lab test result(s), sp4 radiologic studies, CT scan. Consideration of Admission/Observation Escalation of care including admission/observation considered. ED course: CLINICAL HISTORY: Abdominal pain. COMPARISON: CTAbdomen Pelvis 06/16/2023. TECHNIQUE: CTABDOMEN PELVIS WITH IV CONTRAST on 09/08/2024 9:58 PM CDT This exam was performed according to our departmental dose-optimization program, which includes automated exposure control, adjustment of the mA and/or kV according to patient size and/or use of iterative reconstruction technique. FINDINGS: Lower lungs are clear. Abdomen: The liver is normal in appearance. There is no biliary dilatation. Gallbladder is normal in appearance. The pancreas and spleen are normal in appearance. The adrenal glands and kidneys are unremarkable. Abdominal aorta is normal in course and caliber without aneurysm. There is no free air. There is no retroperitoneal adenopathy. There is a moderate fat-containing right upper quadrant anterior abdominal wall hernia. Pelvis: There is no bowel obstruction. Urinary bladder is unremarkable. There is no free fluid. Uterus is normal in size. Presumed colectomy and ileoanal anastomosis changes are stable. Skeleton: There are no acute osseous findings. No suspicious bony lesions. IMPRESSION: No acute process. . ED course: Patient decided to leave emergency department. Vital signs are stable, CAT scan is negative, will provide informed discharge. 09/08 21:57 Order name: Blood Culture Adult (2) [facility] 09/08 21:57 Order name: CBC with Diff; Complete Time: 23:37 4 09/08 21:57 Order name: CMP; Complete Time: 23:47 [facility] 09/08 21:57 Order name: Lactate w/ 2H reflex if indic.; Complete Time: 23:47 [facility] 09/08 21:57 Order name: Protime (+inr); Complete Time: 23:41 [facility] 09/08 21:57 Order name: Ptt, Activated; Complete Time: 23:41 [facility] 09/08 21:57 Order name: Lipase; Complete Time: 23:47 [facility] 09/08 21:58 Order name: CT Abd/Pelvis - IV Contrast Only [facility] 09/08 21:57 Order name: Accucheck; Complete Time: 23:54 [facility] 09/08 21:57 Order name: Cardiac monitoring; Complete Time: 23:33 [facility] 09/08 21:57 Order name: IV Saline Lock - Large Bore; Complete Time: 23:33 [facility] 09/08 21:57 Order name: Labs collected and sent; Complete Time: 23:33 09/08 21:57 Order name: O2 Per Protocol; Complete Time: 23:33 [facility] 09/08 21:57 Order name: O2 Sat Monitoring; Complete Time: 23:33 09/08 21:57 Order name: Vital Signs; Complete Time: 23:33 sb4 Administered Medications: 09/08 23:25 Drug: morphine IVP or IV 4 mg IVP once over 4 mins Route: IVP; Infused Over: 4 mins; rg5 Site: right forearm; 09/09 00:32 Follow up: Response: No adverse reaction; Pain is decreased rg5 09/08 23:25 Drug: Ondansetron IVP 4 mg IVP once; over 2 minutes Route: IVP; Site: right forearm; rg5 09/09 00:32 Follow up: Response: No adverse reaction; Pain is decreased rg5 09/08 23:52 Drug: HYDROmorphone IVP 1 mg IVP once Route: IVP; Site: right forearm; rg5 09/09 00:33 Follow up: Response: No adverse reaction; Pain is decreased rg5 Disposition: 03:15 Co-signature as Attending Physician, Juice Calixto MD I agree with the assessment sp4 and plan of care. I reviewed the patient's care provided by the Advanced Practice Provider and agree with the diagnosis and treatment plan. Disposition Summary: 09/09/24 07:27 Discharge Ordered Notes: Location: Home sp4 Problem: new sp4 Symptoms: have improved sp4 Condition: Stable sp4 Diagnosis - Abdominal pain, Generalized(09/09/24 07:27) sp4 Followup: sp4 - With: Private Physician - When: As needed - Reason: Recheck today's complaints Discharge Instructions: - Discharge Summary Sheet sp4 - Abdominal Pain, Adult sp4 Forms: - Patient Portal Instructions sp4 Signatures: Dispatcher [employer] EDAmie Quintana, ROSINA ALMAGUER sb4 Juice Calixto MD MD sp4 Alanis Esquivel RN RN me1 Suresh Ann RN RN 5 Susanna Gruber Corrections: (The following items were deleted from the chart) 09/08 21:57 21:57 PMHx: Acute Kidney Failure (ulcertive colitus); me1 me1 09/09 07:08 02:53 after being seen by provider jl7 07:08 02:53 other jl7 07:08 03:16 Abdominal pain, Generalized sp4 jl7 07:08 03:16 History of Ulcerative Colitis sp4 jl7
--- NOTE | 2024-09-09 03:05 | RAD REPORT ---
CLINICAL HISTORY: Abdominal pain. COMPARISON: CT Abdomen Pelvis 06/16/2023. TECHNIQUE: CT ABDOMEN PELVIS WITH IV CONTRAST on 09/08/2024 9:58 PM CDT This exam was performed according to our departmental dose-optimization program, which includes autom ated exposure control, adjustment of the mA and/or kV according to patient size and/or use of iterative reconstruction technique. FINDINGS: Lower lungs are clear. Abdomen: The liver is normal in appearance. There is no biliary dilatation. Gallbladder is normal in appearance. The pancreas and spleen are normal in appearance. The adrenal glands and kidneys are unremarkable. Abdominal aorta is normal in course and caliber without aneurysm. There is no free air. There is no r etroperitoneal adenopathy. There is a moderate fat-containing right upper quadrant anterior abdominal wall hernia. Pelvis: There is no bowel obstruction. Urinary bladder is unremarkable. There is no free fluid. Uteru s is normal in size. Presumed colectomy and ileoanal anastomosis changes are stable. Skeleton: There are no acute osseous findings. No suspicious bony lesions. IMPRESSION: No acute process. Electronically signed by: Micha Lopez MD 09/09/2024 02:35 AM CDT RP Due to temporary technical issues with the PACS/TwitChat reporting system, reports are being oscar d by the in-house radiologist without review as a courtesy to ensure prompt reporting the interpreting radiologist is fully responsible for the content of the report. Transcribed Date/Time: 09/09/2024 3:04 AM
[2024-09-09 03:33] VITALS: TEMP 98.5
[2024-09-09 07:46] VITALS: BP 119/72; O2SAT 100
== END 2024-09-09 07:33 | disposition home or self-care (01) ==
LOC: ER 21:49
DX: R10.84 Generalized abdominal pain (principal)
CPT/HCPCS: 87040; 85025; 36415; 85610; 83605; 85730; 83690; 80053; 74177; 96375; 96374; 99284; Q9967; J1171; J2405